=== PATIENT | female | born 1995 | race Caucasian/White ===

== ENCOUNTER 2024-01-20 14:58 | Emergency (ER) | payer OTHER ==
[~2024-01-20] VITALS: Ht 165.1 cm; Wt 85.3 kg
[2024-01-20] MEDS ORDERED: IBUP-1955 PO (16:39)
[2024-01-20 17:10] VITALS: BP 128/71; TEMP 98.3; O2SAT 99
== END 2024-01-20 16:45 | disposition home or self-care (01) ==
LOC: ER 15:04
DX: S00.33XA Contusion of nose, initial encounter (principal); S09.8XXA Other specified injuries of head, initial encounter; Z60.2 Problems related to living alone; Y04.2XXA Assault by strike against or bumped into by another person, initial encounter; Y93.89 Activity, other specified; Y92.218 Other school as the place of occurrence of the external cause; Y99.0 Civilian activity done for income or pay